=== PATIENT | female | born 1935 | race Caucasian/White ===

== ENCOUNTER → 2016-12-19 | Outpatient (CLI) | payer MEDICARE, BC ==
[2016-12-19 11:14] LABS: ASPARTATE AMINO TRANSFERASE 18 U/L (15-37); BLOOD UREA NITROGEN 11 mg/dL (7-18)
[2016-12-19 13:46] LABS: HEMOGLOBIN 10.6 g/dL (11.7-16.4)
[2016-12-19 13:50] LABS: DIFF TOTAL CELLS COUNTED 100 CELL DIFF
[2016-12-19 14:03] LABS: VERIFY COUNTS? YES
[2016-12-19 14:12] LABS: ANISOCYTOSIS 1+; MICROCYTOSIS 1+; OVALOCYTES 1+; POIKILOCYTOSIS 1+
[2016-12-19 14:14] LABS: ECHINOCYTES 1+
== END | disposition home or self-care (01) ==
LOC: LAB 10:34
PROVIDERS: ATTEND Internal Medicine Hospice and Palliative Medicine
DX: E78.00 Pure hypercholesterolemia, unspecified (principal); E03.9 Hypothyroidism, unspecified; I10 Essential (primary) hypertension
CPT/HCPCS: 36415; 80053; 80061; 84439; 84443; 84481; 85025

== ENCOUNTER → 2017-12-18 | Outpatient (CLI) | payer MEDICARE, BC | LOC: CVU 10:25 | PROVIDERS: ATTEND Internal Medicine Cardiovascular Disease | DX: I65.23 Occlusion and stenosis of bilateral carotid arteries (principal) | CPT/HCPCS: 93880 ==